=== PATIENT | male | born 1945 | race Caucasian/White ===

== ENCOUNTER 2017-05-09 18:14 | Emergency (ER) | payer OTHER ==
[~2017-05-09] VITALS: Ht 190.5 cm; Wt 118.2 kg
[~2017-05-09 18:14] MED LIST: ASPI1TAB57 PO; COLA100C3 PO; HYDR-3516 PO; LEVO25TA4 PO; METO25TA3 PO; OXYB5TAB8 PO; SIMV20TA PO; VITA400C59 CHEW
[2017-05-09 18:15] VITALS: BP 179/85; PULSE 57; RESP 16; TEMP 98.8; O2SAT 98
--- NOTE | 2017-05-09 19:27 | PD ---
HPI Chief Complaint: Injury Time Seen by Provider: 19:08 Travel History International Travel<30 days: No Contact w/Intl Traveler<30days: No Traveled to known affect area: No History of Present Illness HPI 71 year-old male presents to the ED for evaluation of left shoulder pain. States he injured it 10 days ago at work. Patient works as a furniture salesman and was reaching out with his left arm to catch a somewhat heavy lamp. He caught the lamp that experience severe pain. He did not fall. He has taken 400 mg ibuprofen a few times since then with mild relief in symptoms. Pain only occurs when he lies on his shoulder at night or with certain range of motion of the shoulder. He denies paresthesias. PFSH Past Medical History Hx Anticoagulant Therapy: Yes (ASA) Arthritis: Yes (right hip) Cancer: Yes (NON-HODGINS [id number] 2001) Cardiovascular Problems: Yes (HTN) High Cholesterol: Yes Chemotherapy: Yes (LYMPHOMA 15YRS AGO) Chest Pain: Yes Congestive Heart Failure: No Diabetes: No Diminished Hearing: No Endocrine: Yes Genitourinary: Yes (ENLARGED PROSTATE/BLADDER, UTI) Hepatitis: No Hiatal Hernia: No Hypertension: Yes Immune Disorder: No Musculoskeletal: Yes (OA) Neurologic: No Psychiatric: No Reproductive: No Respiratory: No Radiation Therapy: No Thyroid Disease: Yes (hypothyroidism) Past Surgical History Abdominal Surgery: Yes (HERNIA REPAIR WITH MESH) AICD: No Cardiac Surgery: Yes (STENT PLACEMENT) Coronary Stent: Yes (X 3 VESSELS) Ear Surgery: No Endocrine Surgery: No Eye Surgery: No Genitourinary Surgery: No Gynecologic Surgery: Yes (VASECTOMY) Joint Replacement: No Oral Surgery: Yes (TONSILECTOMY) Pacemaker: No Thoracic Surgery: No Tonsillectomy: Yes Other Surgery: Yes (LEFT NECK LYMPH NODE) Social History Alcohol Use: No Tobacco Use: No Substance Use: No Allergies-Medications (Allergen,Severity, Reaction): Coded Allergies: diatrizoate meglumine (Unverified Allergy, Severe, Hives, 01/18/17) gadobenic acid (Unverified Allergy, Severe, Hives, 01/18/17) gadodiamide (Unverified Allergy, Severe, Hives, 01/18/17) gadoteridol (Unverified Allergy, Severe, Hives, 01/18/17) iodixanol (Unverified Allergy, Severe, Hives, 01/18/17) iohexol (Unverified Allergy, Severe, Hives, 01/18/17) ciprofloxacin (Unverified Adverse Reaction, Intermediate, Arrhythmias, ) Palpitations, Blurred Vision Reported Meds & Prescriptions Reported Meds & Active Scripts Active Colace (Docusate Sodium) 100 Mg Cap 100 Mg PO BID Ditropan (Oxybutynin Chloride) 5 Mg Tab 5 Mg PO TID Hydrocodone-Acetaminophen 5-325 mg Tab 2 Tab PO Q6HR PRN Reported Aspirin 81 (Aspirin) 81 Mg Tabdr 81 Mg PO DAILY Levothyroxine (Levothyroxine Sodium) 25 Mcg Tab 25 Mcg PO DAILY Metoprolol Tartrate 25 Mg Tab 25 Mg PO BID Simvastatin 20 Mg Tab 20 Mg PO HS Vitamin D-400 (Cholecalciferol) 400 Unit Chew 100 Units CHEW DAILY Review of Systems Except as stated in HPI: all other systems reviewed are Neg Physical Exam Narrative GENERAL: Well-nourished, well-developed male in no acute distress. Afebrile. Ambulatory. SKIN: Focused skin assessment warm/dry. No erythema or ecchymosis. HEAD: Normocephalic. EYES: No scleral icterus. No injection or drainage. NECK: Supple, trachea midline. No JVD or lymphadenopathy. CARDIOVASCULAR: Regular rate and rhythm without murmurs, gallops, or rubs. RESPIRATORY: Breath sounds equal bilaterally. No accessory muscle use. MUSCULOSKELETAL: No cyanosis. No obvious edema. 2+ radial pulse in the left. Radial, ulnar, and median nerves intact in the left. Range of motion of the elbow, wrist, and hand. Patient can abduct about 90. Any flexion or abduction above the head is too painful. No bony tenderness to palpation. Data Data Last Documented VS Vital Signs Date Time Temp Pulse Resp B/P (MAP) Pulse Ox O2 Delivery O2 Flow Rate FiO2 05/09/17 18:15 98.8 57 16 179/85 (116) 98 Room Air Orders Orders Shoulder, Complete (>2vws) (05/09/17 ) Ed Discharge Order (05/09/17 20:50) MDM Medical Decision Making Medical Screen Exam Complete: Yes Emergency Medical Condition: Yes Medical Record Reviewed: Yes Differential Diagnosis Internal derangement, fracture, strain, sprain, tendinitis, tendon rupture Narrative Course 71-year-old male presents to the emergency room for evaluation of left shoulder pain for the past 10 days. Patient injured his shoulder by reaching out to grab a falling lamp at work. He did not fall. Pain is worsened with certain range of motion and when he lay on it at night. Left upper extremity is neurovascularly intact with 2+ radial pulse. Radial, ulnar, and median nerves intact. He has limited range of motion of the shoulder secondary to pain. No obvious edema. X-ray shows no acute bony abnormality. Patient was informed that this is likely derangement and will only be picked up on MRI. Told to follow up with workers come for outpatient MRI or return for worsening symptoms. He declined pain medication. He understands and agrees to plan. Diagnosis Primary Impression: Left shoulder strain Qualified Codes: S46.912A - Strain of unspecified muscle, fascia and tendon at shoulder and upper arm level, left arm, initial encounter Referrals: Orthopedist Primary Care Physician Additional Instructions: Maintain range of motion with shoulder exercises you were taught in the ED. Take Tylenol as directed, as needed for pain. Apply ice to the affected area for 20 minutes at a time, as needed for pain and swelling. Follow-up with a primary care physician. Return to the emergency room for worsening symptoms. Disposition: 01 DISCHARGE HOME Condition: Stable Cinthia Downs May 09, 2017 19:27
--- NOTE | 2017-05-09 20:44 | RADRPT ---
EXAM DATE/TIME: 05/09/2017 18:30 [facility] COMPARISON: No previous studies available for comparison. INDICATIONS : Left shoulder pain. Patient hurt shoulder at work ten days ago trying to catch a lamp that fell off a dresser. MEDICAL HISTORY : None. SURGICAL HISTORY : None. ENCOUNTER: Initial ACUITY: 2 weeks PAIN SCORE: 5/10 LOCATION: Left shoulder. FINDINGS: There is no acute fracture or dislocation. Degenerative changes are noted involving the left acromioc lavicular joint. CONCLUSION: No acute fracture or distention. Degenerative changes involving the left acromioclavicular joint. Samuel To MD on May 09, 2017 at 20:41 Board Certified Radiologist. This report was verified electronically.
== END 2017-05-09 20:56 | disposition home or self-care (01) ==
LOC: NEPK 18:14
DX: S46.912A Strain of unspecified muscle, fascia and tendon at shoulder and upper arm level, left arm, initial encounter (principal); M16.11 Unilateral primary osteoarthritis, right hip; I10 Essential (primary) hypertension; E03.9 Hypothyroidism, unspecified; X50.0XXA Overexertion from strenuous movement or load, initial encounter; Z79.82 Long term (current) use of aspirin; Z79.899 Other long term (current) drug therapy; Z88.8 Allergy status to other drugs, medicaments and biological substances
CPT/HCPCS: 73030; 99283

== ENCOUNTER 2017-08-08 10:00 | Emergency (ER) | payer OTHER ==
[~2017-08-08] VITALS: Ht 190.5 cm; Wt 122.0 kg
[2017-08-08 10:06] VITALS: BP 192/92; PULSE 52; RESP 16; TEMP 98.4; O2SAT 97
[2017-08-08] MEDS ORDERED: LOSA50TA PO (10:11)
--- NOTE | 2017-08-08 12:22 | RADRPT ---
EXAM DATE/TIME: 08/08/2017 12:05 [facility] COMPARISON: No previous studies available for comparison. INDICATIONS : Fall, right hip pain. MEDICAL HISTORY : None. SURGICAL HISTORY : None. ENCOUNTER: Initial ACUITY: 1 day PAIN SCORE: 7/10 LOCATION: Right hip FINDINGS: Examination of the right hip was performed with AP Pelvis. Severe arthritic changes. Subchondral cyst ic changes along the acetabulum. Prominent osteophytes along the femoral head and no fracture. The a cetabulum is grossly intact. CONCLUSION: Severe arthritic changes right hip. No fracture. Karan Angel MD on August 08, 2017 at 12:17 Board Certified Radiologist. This report was verified electronically.
--- NOTE | 2017-08-08 12:46 | PD ---
HPI Chief Complaint: Fall Time Seen by Provider: 11:46 Travel History International Travel<30 days: No Contact w/Intl Traveler<30days: No Traveled to known affect area: No History of Present Illness HPI This is a 71-year-old male here with right hip pain after he had a slip and fall while at the [employer] store this morning. He reports he tripped on a carpet falling onto his right side. No head injury or loss of consciousness. He is not anticoagulated. He was ambulatory after the accident. He drove himself home and then back to [facility] and then to the hospital for evaluation. He reports he has pain in the right hip with ambulating and flexion and extension of the hip. Symptom severity is [id number]. Slightly alleviated with rest. He denies headache, neck pain, chest pain, shortness breath, abdominal pain, paresthesia or weakness of the extremities. PFSH Past Medical History Arthritis: Yes (right hip) Cancer: Yes (NON-HODGINS [id number] 2000) Cardiovascular Problems: Yes (HTN) High Cholesterol: Yes Chemotherapy: Yes (LYMPHOMA 15YRS AGO) Chest Pain: Yes Congestive Heart Failure: No Diabetes: No Diminished Hearing: No Endocrine: Yes Gastrointestinal Disorders: No Genitourinary: Yes (ENLARGED PROSTATE/BLADDER, UTI) Hepatitis: No Hiatal Hernia: No Hypertension: Yes Immune Disorder: No Implanted Vascular Access Dvce: No Musculoskeletal: Yes (OA) Neurologic: No Psychiatric: No Reproductive: No Respiratory: No Radiation Therapy: No Thyroid Disease: Yes (hypothyroidism) Tetanus Vaccination: Unknown Past Surgical History Abdominal Surgery: Yes (HERNIA REPAIR WITH MESH) AICD: No Cardiac Surgery: Yes (STENT PLACEMENT) Coronary Stent: Yes (X 3 VESSELS) Ear Surgery: No Endocrine Surgery: No Eye Surgery: No Genitourinary Surgery: No Gynecologic Surgery: Yes (VASECTOMY) Joint Replacement: No Neurologic Surgery: No Oral Surgery: Yes (TONSILECTOMY) Pacemaker: No Thoracic Surgery: No Tonsillectomy: Yes Other Surgery: Yes (LEFT NECK LYMPH NODE) Social History Alcohol Use: No Tobacco Use: No Substance Use: No Allergies-Medications (Allergen,Severity, Reaction): Coded Allergies: diatrizoate meglumine (Unverified Allergy, Severe, Hives, 08/08/17) gadobenic acid (Unverified Allergy, Severe, Hives, 08/08/17) gadodiamide (Unverified Allergy, Severe, Hives, 08/08/17) gadoteridol (Unverified Allergy, Severe, Hives, 08/08/17) iodixanol (Unverified Allergy, Severe, Hives, 08/08/17) iohexol (Unverified Allergy, Severe, Hives, 08/08/17) ciprofloxacin (Unverified Adverse Reaction, Intermediate, Arrhythmias, 08/08) Palpitations, Blurred Vision Reported Meds & Prescriptions Reported Meds & Active Scripts Active Reported Losartan (Losartan Potassium) 50 Mg Tab 50 Mg PO DAILY Aspirin 81 (Aspirin) 81 Mg Tabdr 81 Mg PO DAILY Levothyroxine (Levothyroxine Sodium) 25 Mcg Tab 25 Mcg PO DAILY Metoprolol Tartrate 25 Mg Tab 25 Mg PO BID Simvastatin 20 Mg Tab 20 Mg PO HS Review of Systems Except as stated in HPI: all other systems reviewed are Neg Physical Exam Narrative GENERAL: Alert and well-appearing 71-year-old male. Patient is ambulatory with a steady gait SKIN: Warm and dry. HEAD: Atraumatic. Normocephalic. EYES: Pupils equal and round. EOMs intact. No injection or drainage. ENT: No nasal bleeding or discharge. Mucous membranes pink and moist. NECK: Trachea midline. No cervical midline tenderness CARDIOVASCULAR: Regular rate and rhythm. No chest wall tenderness RESPIRATORY: No accessory muscle use. Clear to auscultation. Breath sounds equal bilaterally. GASTROINTESTINAL: Abdomen soft, non-tender, nondistended. Hepatic and splenic margins not palpable. MUSCULOSKELETAL: Extremities without clubbing, cyanosis, or edema. No obvious deformities. Pelvis is stable. Right hip is nontender to palpation. Pain with flexion of the right hip. 2+ distal pulses. Normal sensation. Brisk cap refill. NEUROLOGICAL: Awake and alert. No obvious cranial nerve deficits. Motor grossly within normal limits. Five out of 5 muscle strength in the arms and legs. Normal speech. PSYCHIATRIC: Appropriate mood and affect; insight and judgment normal. Data Data Last Documented VS Vital Signs Date Time Temp Pulse Resp B/P (MAP) Pulse Ox O2 Delivery O2 Flow Rate FiO2 08/08/17 10:06 98.4 52 16 192/92 (125) 97 Orders Orders Hip, Uni(Ap&Lat) W Ap Pelvis (08/08/17 ) MDM Medical Decision Making Medical Screen Exam Complete: Yes Emergency Medical Condition: Yes Differential Diagnosis Hip fracture, contusion, pelvic fracture Narrative Course 71-year-old male who had a trip and fall from a standing position injuring his right hip. The extremity is neurovascularly intact. He has a normal neurologic exam. X-rays negative for fracture. Patient be treated for contusion Diagnosis Primary Impression: Contusion Qualified Codes: S70.01XA - Contusion of right hip, initial encounter Referrals: Primary Care Physician Departure Forms: Tests/Procedures, Work Release Enter return to work date: Aug 12, 2017 Additional Instructions: Tylenol and ibuprofen as needed for pain. Ice the right hip. Follow-up with her primary doctor Disposition: 01 DISCHARGE HOME Condition: Stable Nessa Burroughs Aug 08, 2017 12:46
== END 2017-08-08 13:00 | disposition home or self-care (01) ==
LOC: PHED 10:00 → PHEFT 13:00
DX: S70.01XA Contusion of right hip, initial encounter (principal); W18.09XA Striking against other object with subsequent fall, initial encounter; Y92.512 Supermarket, store or market as the place of occurrence of the external cause; M16.11 Unilateral primary osteoarthritis, right hip; I10 Essential (primary) hypertension; E03.9 Hypothyroidism, unspecified; Z85.72 Personal history of non-Hodgkin lymphomas
CPT/HCPCS: 73502; 99283